=== PATIENT | female | born 1985 ===

== ENCOUNTER → 2020-06-06 | Outpatient (CLI) | payer OTHER | END | disposition home or self-care (01) | LOC: PRENATAL 14:30 | PROVIDERS: ATTEND Obstetrics & Gynecology Maternal & Fetal Medicine | DX: O35.0XX1 Maternal care for (suspected) central nervous system malformation in fetus, fetus 1 (principal); O35.3XX1 Maternal care for (suspected) damage to fetus from viral disease in mother, fetus 1; O98.513 Other viral diseases complicating pregnancy, third trimester; O34.13 Maternal care for benign tumor of corpus uteri, third trimester; Z36.89 Encounter for other specified antenatal screening; Z3A.28 28 weeks gestation of pregnancy ==

== ENCOUNTER 2020-08-13 19:04 | Inpatient (IN) | payer OTHER ==
[~2020-08-13] VITALS: Ht 157.5 cm; Wt 2.7 kg
[2020-08-13] MEDS ORDERED: PRENATAL TABLE1 EAC2 PO (20:48)
[2020-08-17] MEDS ORDERED: Tylenol #3 PO (08:22)
== END 2020-08-17 12:37 | disposition home or self-care (01) | DRG 788 ==
LOC: O/R 19:04 → LDR 19:04 → O/R 08-14 16:25 → OB/GYN 08-14 18:48 → SURG-SUITE 08-15 18:12
PROVIDERS: ADMIT Obstetrics & Gynecology; ATTEND Obstetrics & Gynecology
PROC: 3E0P7VZ Introduction of Hormone into Female Reproductive, Via Natural or Artificial Opening (ICD-10-PCS; 2020-08-13)
PROC: 4A1HXFZ Monitoring of Products of Conception, Cardiac Rhythm, External Approach (ICD-10-PCS; 2020-08-13)
PROC: 10D00Z1 Extraction of Products of Conception, Low, Open Approach (ICD-10-PCS; principal; 2020-08-14 15:00)
DX: O82 Encounter for cesarean delivery without indication (principal); O36.8130 Decreased fetal movements, third trimester, not applicable or unspecified; Z3A.38 38 weeks gestation of pregnancy; Z37.0 Single live birth; Z20.822 Contact with and (suspected) exposure to COVID-19

== ENCOUNTER 2025-02-05 13:40 | Outpatient (CLI) | payer OTHER ==
[~2025-02-05 13:40] MED LIST: PRENATAL TABLE1 EAC2 PO; Tylenol #3 PO
== END 2025-02-05 13:44 | disposition home or self-care (01) ==
LOC: PRENATAL 13:40
PROVIDERS: ATTEND Obstetrics & Gynecology Maternal & Fetal Medicine
DX: O44.02 Complete placenta previa NOS or without hemorrhage, second trimester (principal); O09.522 Supervision of elderly multigravida, second trimester; O10.012 Pre-existing essential hypertension complicating pregnancy, second trimester; O24.419 Gestational diabetes mellitus in pregnancy, unspecified control; Z3A.19 19 weeks gestation of pregnancy